=== PATIENT | male | born 1990 | race Caucasian/White ===

== ENCOUNTER 2017-06-16 20:50 | Inpatient (IN) | payer BC ==
[~2017-06-16] VITALS: Ht 200.7 cm; Wt 89.4 kg
[2017-06-17] MEDS ORDERED: ONDANSETRON HCL 4MG/2ML VIAL IV STA (00:25)
[2017-06-17] MEDS ORDERED: LORAZEPAM 2MG/ML CPJ IV STA (00:25)
[2017-06-17] MEDS ORDERED: SODIUM CHLORIDE 0.9% 1,000 ML IV ONE ×2 (00:25→12:20)
[2017-06-17 01:11] LABS: BASOPHILS % 0.3 % (0.0-2.0); EOSINOPHILS % 0.8 % (0.0-5.0); HEMATOCRIT. 38.9 % (42.0-52.0); HEMOGLOBIN. 13.5 g/dL (14.0-18.0); MEAN CORPUSCULAR HEMOGLOBIN 29.1 pg (28.0-32.0); MEAN CORPUSCULAR VOLUME 83.9 fL (80.0-94.0); MEAN PLATELET VOLUME 8.4 fl (7.4-10.4); MONOCYTES % 10.3 % (2.0-8.0); NEUTROPHILS % 69.6 % (40.0-76.0); PLATELET 224 x1000/uL (130-400); RED BLOOD CELL COUNT 4.63 mill/uL (4.7-6.1); RED CELL DISTRIBUTION WIDTH 13.2 % (11.6-14.6)
[2017-06-17 01:19] LABS: CHLORIDE 104 mEq/L (98-107)
[2017-06-17 01:29] LABS: CARBON DIOXIDE 28 mEq/L (21-32); ETHANOL BLOOD < 10 mg/dL
[2017-06-17 06:57] LABS: GLUCOSE URINE NEGATIVE (NEGATIVE); KETONES URINE NEGATIVE (NEGATIVE); LEUKOCYTE ESTERASE URINE NEGATIVE (NEGATIVE); NITRITE URINE NEGATIVE (NEGATIVE); OCCULT BLOOD URINE NEGATIVE (NEGATIVE); PH URINE 5.5 (4.5-8.0); PROTEIN URINE NEGATIVE (NEGATIVE); SPECIFIC GRAVITY URINE 1.012 (1.005-1.030); UROBILINOGEN URINE 0.2 E.U./dL (0.2-1.0)
[2017-06-17 06:58] LABS: CLARITY URINE CLEAR (CLEAR); COLOR URINE YELLOW (YELLOW)
[2017-06-17 07:19] LABS: *AMPHETAMINES SCREEN URINE NEGATIVE (NEGATIVE); *BARBITURATES SCREEN URINE NEGATIVE (NEGATIVE); *BENZODIAZEPINES SCREEN URINE NEGATIVE (NEGATIVE); CANNABINOID URINE SCREEN PRESUMTIVE POSITIVE (NEGATIVE); METHADONE URINE SCREEN NEGATIVE (NEGATIVE); OPIATES URINE SCREEN NEGATIVE (NEGATIVE); PHENCYCLIDINE URINE SCREEN NEGATIVE (NEGATIVE)
[2017-06-17 08:46] LABS: *COCAINE SCREEN URINE NEGATIVE (NEGATIVE)
[2017-06-17] MEDS ORDERED: AMMONIA INHALATION 1EA INH ONE (11:57)
[2017-06-17 13:04] LABS: CREATINE KINASE MB FRACTION 3.2 ng/mL (0.5-3.6)
[2017-06-17 13:08] LABS: AMMONIA 32 uMol/L (<32)
[2017-06-17] MEDS ORDERED: DEXT 5%/0.45% NACL KCL 40MEQ/L 1,000 ML IV SCH (20:45)
[2017-06-17 21:09] LABS: BASOPHILS % 0.4 % (0.0-2.0); EOSINOPHILS % 0.4 % (0.0-5.0); HEMATOCRIT. 40.5 % (42.0-52.0); HEMOGLOBIN. 13.7 g/dL (14.0-18.0); LYMPHOCYTES % 7.2 % (20.0-50.0); MEAN CORPUSCULAR HEMOGLOBIN 28.7 pg (28.0-32.0); MEAN PLATELET VOLUME 8.5 fl (7.4-10.4); PLATELET 196 x1000/uL (130-400); RED BLOOD CELL COUNT 4.76 mill/uL (4.7-6.1); RED CELL DISTRIBUTION WIDTH 13.3 % (11.6-14.6)
[2017-06-17 21:15] LABS: CHLORIDE 111 mEq/L (98-107)
[2017-06-17] MEDS ORDERED: LORAZEPAM 2MG/ML CPJ IV PRN (21:20)
[2017-06-17] MEDS ORDERED: ONDANSETRON HCL 4MG/2ML VIAL IV PRN (21:20)
[2017-06-17 21:31] LABS: CARBON DIOXIDE 23 mEq/L (21-32)
[2017-06-17 21:35] LABS: CREATINE KINASE 2313 IU/L (39-308)
[2017-06-17 22:30] VITALS: BP 148/85
[2017-06-18] VITALS: BP 131/89
[2017-06-18] MEDS: DEXT 5%/0.45% NACL KCL 40MEQ/L 1,000 ML IV SCH ×4 (02:44→22:04)
[2017-06-18 04:00] VITALS: BP 135/93
[2017-06-18] MEDS ORDERED: OLAN5TAB26 PO ×2 (04:12)
[2017-06-18] MEDS ORDERED: ACETAMINOPHEN 650MG SUPP PR PRN (04:15)
[2017-06-18 06:47] LABS: BASOPHILS % 0.2 % (0.0-2.0); EOSINOPHILS % 0.5 % (0.0-5.0); HEMATOCRIT. 39.3 % (42.0-52.0); HEMOGLOBIN. 13.8 g/dL (14.0-18.0); LYMPHOCYTES % 11.9 % (20.0-50.0); MEAN CORPUSCULAR HEMOGLOBIN 29.5 pg (28.0-32.0); MEAN CORPUSCULAR VOLUME 83.9 fL (80.0-94.0); MEAN PLATELET VOLUME 8.8 fl (7.4-10.4); MONOCYTES % 9.2 % (2.0-8.0); NEUTROPHILS % 78.2 % (40.0-76.0); PLATELET 189 x1000/uL (130-400); RED BLOOD CELL COUNT 4.69 mill/uL (4.7-6.1); RED CELL DISTRIBUTION WIDTH 13.2 % (11.6-14.6)
[2017-06-18 07:21] LABS: CARBON DIOXIDE 24 mEq/L (21-32); CHLORIDE 110 mEq/L (98-107)
[2017-06-18 07:39] LABS: CREATINE KINASE 5098 IU/L (39-308)
[2017-06-18 08:00] VITALS: BP 147/88
[2017-06-18 12:00] VITALS: BP 139/93
[2017-06-18] MEDS: ENOXAPARIN 40MG/0.4ML SYR SUBCUT SCH (12:36)
[2017-06-18 12:37] LABS: T4 FREE 1.14 ng/dL (0.76-1.46)
[2017-06-18] MEDS ORDERED: ACETYLCYSTEINE 200MG/ML 20% VIAL 4ML PO ONE (13:00)
[2017-06-18] MEDS ORDERED: [UNRECOGNIZED DRUG - REMARK] XX SCH (13:15)
[2017-06-18] MEDS ORDERED: DEXT 5% IV NR ×2 (14:00→15:00)
[2017-06-18] MEDS ORDERED: WATER IV NR ×3 (14:00→19:00)
[2017-06-18] MEDS ORDERED: ACETYLCYSTEINE IV NR ×3 (14:00→19:00)
[2017-06-18 17:15] LABS: CREATINE KINASE MB FRACTION 3.4 ng/mL (0.5-3.6); TROPONIN I < 0.02 ng/mL (0.00-0.04)
[2017-06-18 17:21] LABS: CREATINE KINASE 6849 IU/L (39-308)
[2017-06-18] MEDS ORDERED: DEXTROSE 5% IV NR (19:00)
[2017-06-18 20:49] VITALS: BP 144/87
[2017-06-18 23:48] LABS: CREATINE KINASE MB FRACTION 2.5 ng/mL (0.5-3.6); TROPONIN I < 0.02 ng/mL (0.00-0.04)
[2017-06-19] VITALS: BP 137/75
[2017-06-19 00:54] LABS: CREATINE KINASE 7886 IU/L (39-308)
[2017-06-19] MEDS: DEXT 5%/0.45% NACL KCL 40MEQ/L 1,000 ML IV SCH (05:14)
[2017-06-19 07:26] LABS: TROPONIN I < 0.02 ng/mL (0.00-0.04)
[2017-06-19 07:45] VITALS: BP 139/91
[2017-06-19 10:01] LABS: CREATINE KINASE 6357 IU/L (39-308)
[2017-06-19 11:59] VITALS: BP 129/86
[2017-06-19] MEDS: SODIUM CHLORIDE 0.9% 1,000 ML IV SCH ×2 (13:12→20:15)
[2017-06-19] MEDS: ENOXAPARIN 40MG/0.4ML SYR SUBCUT SCH (13:13)
[2017-06-19 15:53] VITALS: BP 136/87
[2017-06-19 16:47] LABS: CHLORIDE 107 mEq/L (98-107)
[2017-06-19 16:56] LABS: CARBON DIOXIDE 24 mEq/L (21-32)
[2017-06-19] MEDS ORDERED: DEXTROSE 5% IV NR (17:00)
[2017-06-19] MEDS ORDERED: ACETYLCYSTEINE IV NR (17:00)
[2017-06-19] MEDS ORDERED: WATER IV NR (17:00)
[2017-06-19 20:00] VITALS: BP 136/81
[2017-06-20] VITALS: BP 140/78
[2017-06-20 04:00] VITALS: BP 138/79
[2017-06-20] MEDS: SODIUM CHLORIDE 0.9% 1,000 ML IV SCH ×2 (06:15→21:06)
[2017-06-20 06:25] LABS: BASOPHILS % 0.1 % (0.0-2.0); EOSINOPHILS % 1.8 % (0.0-5.0); HEMATOCRIT. 42.3 % (42.0-52.0); HEMOGLOBIN. 14.6 g/dL (14.0-18.0); LYMPHOCYTES % 11.3 % (20.0-50.0); MEAN PLATELET VOLUME 9.3 fl (7.4-10.4); MONOCYTES % 9.7 % (2.0-8.0); NEUTROPHILS % 77.1 % (40.0-76.0); PLATELET 213 x1000/uL (130-400); RED BLOOD CELL COUNT 5.04 mill/uL (4.7-6.1)
[2017-06-20 07:21] VITALS: BP 123/83
[2017-06-20 11:25] VITALS: BP 129/85
[2017-06-20 12:12] LABS: CHLORIDE 107 mEq/L (98-107)
[2017-06-20 12:20] LABS: CARBON DIOXIDE 26 mEq/L (21-32)
[2017-06-20] MEDS: ENOXAPARIN 40MG/0.4ML SYR SUBCUT SCH (14:24)
[2017-06-20 16:14] VITALS: BP 129/86
[2017-06-20 20:06] VITALS: BP 134/82
[2017-06-21] VITALS: BP 124/82
[2017-06-21] MEDS: SODIUM CHLORIDE 0.9% 1,000 ML IV SCH (02:15)
[2017-06-21 04:00] VITALS: BP 137/86
[2017-06-21 07:57] VITALS: BP 156/96
[2017-06-21 12:00] VITALS: BP 145/89
[2017-06-21] MEDS: ENOXAPARIN 40MG/0.4ML SYR SUBCUT SCH (13:00)
== END 2017-06-21 14:30 | disposition home or self-care (01) | DRG 917 ==
LOC: ER 21:09 → 6WST 06-17 12:04 → EDBEDREQ 06-17 12:24 → ENRESERV 06-17 18:47 → 6WST 06-18 00:18
PROVIDERS: ADMIT Internal Medicine; ATTEND Internal Medicine
DX: T43.591A Poisoning by other antipsychotics and neuroleptics, accidental (unintentional), initial encounter (principal); G92 Toxic encephalopathy; M62.82 Rhabdomyolysis; F31.9 Bipolar disorder, unspecified; E87.6 Hypokalemia; Z79.899 Other long term (current) drug therapy; Z82.49 Family history of ischemic heart disease and other diseases of the circulatory system; Y92.520 Airport as the place of occurrence of the external cause
CPT/HCPCS: 36415; 70450; 71010; 80053; 80061; 80305; 80307; 80329; 81003; 82140; 82550; 82553; 83036; 83735; 83880; 84439; 84443; 84450; 84460; 84484; 85025; 85379; 93005; 93306; 96361; 96374; 97162; 99285; A6261; G0482; J0132; J1650; J2060; J2405; J7030; J7040; J7060; J7070; A4315